=== PATIENT | female | born 1965 | race Caucasian/White ===

== ENCOUNTER → 2017-01-08 | Outpatient (CLI) | payer BC, OTHER ==
--- NOTE | 2017-01-08 15:12 | REPMRS ---
Patient History The patient states she had a clinical breast exam in 01/11 Family history of breast cancer in maternal aunt at age 90. Reductions of both breasts, 2011. Digital Woman Screen Mammo: January 08, 2017 - Exam #: [id number] Bilateral CC and MLO view(s) were taken. Technologist: Danni Murrell, Technologist Prior study comparison: November 04, 2015, digital woman screen mammo performed at [facility]. November 02, 2014, digital woman screen mammo performed at [facility]. FINDINGS: The breast tissue is heterogeneously dense. This may lower the sensitivity of mammography. There is a moderate amount of heterogeneously dense fibroglandular tissue which is fairly symmetric. There is no interval development of dominant mass, architectural distortion, or clustered microcalcification typical of malignancy. There has been no change in the appearance of the mammogram from the prior studies. ASSESSMENT: BI-RADS/ACR category 1 mammogram. Negative. Recommendation Routine screening mammogram of both breasts in 1 year (for women over age 40). This mammogram was interpreted with the aid of an FDA-approved computer-aided dectection system. Electronically Signed By: Handy Parada MD 01/08/17 [id number]
== END ==
LOC: M WHC 14:17
PROVIDERS: ATTEND Nurse Practitioner Women's Health
DX: R92.2 Inconclusive mammogram (principal)

== ENCOUNTER → 2017-01-08 | Outpatient (REF) | payer OTHER | LOC: M SFHCWAGY 14:51 | PROVIDERS: ATTEND Nurse Practitioner Women's Health | DX: Z12.31 Encounter for screening mammogram for malignant neoplasm of breast (principal); Z12.4 Encounter for screening for malignant neoplasm of cervix ==

== ENCOUNTER → 2017-10-29 | Outpatient (REF) | payer OTHER | LOC: M LAB REF 17:14 | DX: H60.11 Cellulitis of right external ear (principal) ==

== ENCOUNTER → 2018-02-25 | Outpatient (CLI) | payer BC | LOC: M WHC 08:36 | DX: Z12.31 Encounter for screening mammogram for malignant neoplasm of breast (principal) ==

== ENCOUNTER → 2018-02-25 | Outpatient (REF) | payer OTHER | LOC: M SFHCWAGY 11:16 | DX: Z12.4 Encounter for screening for malignant neoplasm of cervix (principal) ==

== ENCOUNTER → 2018-02-25 | Outpatient (REF) | payer OTHER | LOC: M SFHCWAGY 11:16 | DX: Z12.4 Encounter for screening for malignant neoplasm of cervix (principal) ==

== ENCOUNTER → 2020-01-27 | Outpatient (CLI) | payer BC, OTHER ==
[~2020-01-27] MED LIST: FLUO20CA22 PO; MULT1TAB7 PO
== END ==
LOC: M LABSMTC 08:42
PROVIDERS: ATTEND Anesthesiology
DX: Z01.818 Encounter for other preprocedural examination (principal); Z11.59 Encounter for screening for other viral diseases

== ENCOUNTER 2020-01-30 11:10 | Day surgery (SDC) | payer BC, OTHER ==
[~2020-01-30] VITALS: Ht 154.9 cm; Wt 67.6 kg
[~2020-01-30 11:10] MED LIST changes: +LIDOCAINE 2% 100MG/5ML SDV (FOR ANES.) As Ordered ONE; +NS 1,000 ML IV ONE; +propofoL 200 MG/20 ML VIAL As Ordered ONE
[2020-01-30] MEDS ORDERED: PHENYLephrine HCL 500 MCG/5 ML (100MCG/ML) SYRINGE (J2370) As Ordered ONE (11:26)
[2020-01-30] MEDS ORDERED: ePHEDrine SULFATE 25 MG/5 ML(5MG/ML) SYRINGE As Ordered ONE (11:32)
--- NOTE | 2020-01-30 12:51 | ROOR ---
Patient Name: Becky Alanis Procedure Date: 01/30/2020 12:06 PM Date of : 1965 Age: 54 Room: [facility] Gender: Female Note Status: Finalized Procedure: Colonoscopy Indications: Colon cancer screening in patient at increased risk: Family history of 1st-degree relative with colon polyps, Last colonoscopy 5 years ago Providers: Alber Lee MD Referring MD: Stefany Rizzo MD Requesting Provider: Medicines: Monitored Anesthesia Care Complications: No immediate complications. Procedure: Pre-Anesthesia Assessment: - Prior to the procedure, a History and Physical was performed, and patient medications and allergies were reviewed. The patient is competent. The risks and benefits of the procedure and the sedation options and risks were discussed with the patient. All questions were answered and informed consent was obtained. Patient identification and proposed procedure were verified by the physician, the nurse and the entry clerk in the procedure room. Mental Status Examination: alert and oriented. Airway Examination: normal oropharyngeal airway and neck mobility. Prophylactic Antibiotics: The patient does not require prophylactic antibiotics. Prior Anticoagulants: The patient has taken no previous anticoagulant or antiplatelet agents. ASA Grade Assessment: II - A patient with mild systemic disease. After reviewing the risks and benefits, the patient was deemed in satisfactory condition to undergo the procedure. The anesthesia plan was to use monitored anesthesia care (MAC). Immediately prior to administration of medications, the patient was re-assessed for adequacy to receive sedatives. The heart rate, respiratory rate, oxygen saturations, blood pressure, adequacy of pulmonary ventilation, and response to care were monitored throughout the procedure. The physical status of the patient was re-assessed after the procedure. The Colonoscope was introduced through the anus and advanced to the cecum, identified by appendiceal orifice and ileocecal valve. The colonoscopy was performed without difficulty. The patient tolerated the procedure well. The quality of the bowel preparation was excellent. Findings: The perianal and digital rectal examinations were normal. Multiple medium-mouthed diverticula were found in the sigmoid colon. The exam was otherwise without abnormality. Impression: - Diverticulosis in the sigmoid colon. - The examination was otherwise normal. - No specimens collected. Recommendation: - Discharge patient to home. - Resume previous diet. - Continue present medications. - Repeat colonoscopy in 5 years for surveillance. Alber Lee MD Alber Lee MD 01/30/2020 12:50:38 PM Electronically signed by Alber Lee MD Number of Addenda: 0 Note Initiated On: 01/30/2020 12:06 PM Estimated Blood Loss: Estimated blood loss: none.
[2020-01-30 13:10] VITALS: BP 119/62
== END 2020-01-30 13:24 | disposition home or self-care (01) ==
LOC: M OPP 11:10
PROVIDERS: ATTEND Surgery
DX: Z12.11 Encounter for screening for malignant neoplasm of colon (principal); Z83.71 Family history of colonic polyps; K57.30 Diverticulosis of large intestine without perforation or abscess without bleeding; Z79.899 Other long term (current) drug therapy

== ENCOUNTER 2020-06-15 16:20 | Emergency (ER) | payer BC, OTHER ==
[~2020-06-15] VITALS: Ht 154.9 cm; Wt 77.9 kg
[~2020-06-15 16:20] MED LIST changes: -LIDOCAINE 2% 100MG/5ML SDV (FOR ANES.) As Ordered ONE; -NS 1,000 ML IV ONE; -propofoL 200 MG/20 ML VIAL As Ordered ONE
[2020-06-15] MEDS ORDERED: MORPHINE 10 MG/ML 1ML VIAL (J2270) IM ONE (17:00)
--- NOTE | 2020-06-15 17:27 | REPVR ---
PROCEDURE INFORMATION: Exam: XR Left Forearm Exam date and time: 06/15/2020 5:14 PM Age: 55 years old Clinical indication: Pain and injury or trauma; Injury history: Crush injury; Initial encounter; Crushing; Arm, lower; Left; Hand; Additional info: Crush injury left hand/forearm TECHNIQUE: Imaging protocol: XR Left forearm. Views: 2 views. COMPARISON: No relevant prior studies available. FINDINGS: Bones/joints: There appear to be fractures at the base of the 4th and 5th metacarpal bones. Cortical irregularity seen at the base of the 3rd metacarpal bone may indicate fractures well. Correlation with hand x-ray suggested. Otherwise unremarkable. Soft tissues: See "Bones/joints" finding. IMPRESSION: There appear to be fractures at the base of the 4th and 5th metacarpal bones. Cortical irregularity seen at the base of the 3rd metacarpal bone may indicate fractures well. Correlation with hand x-ray suggested. Electronically signed by: Jose Terry On 06/15/2020 17:27:39 PM
--- NOTE | 2020-06-15 17:29 | REPVR ---
PROCEDURE INFORMATION: Exam: XR Left Hand Exam date and time: 06/15/2020 5:14 PM Age: 55 years old Clinical indication: Pain and injury or trauma; Injury history: Crush injury; Initial encounter; Crushing; Arm, lower and hand; Left; Lower or forearm; Additional info: Crush injury left hand/forearm TECHNIQUE: Imaging protocol: XR Left hand. Views: 3 or more views. COMPARISON: No relevant prior studies available. FINDINGS: Bones/joints: Fractures at the base of the 4th and 5th metacarpal bone. Oblique fractures through the proximal portion of the proximal phalanx of the 5th finger. Degenerative changes in the interphalangeal joints. Soft tissues: Soft tissue swelling in the lateral and 5th finger. IMPRESSION: Fractures at the base of the 4th and 5th metacarpal bone. Oblique fractures through the proximal portion of the proximal phalanx of the 5th finger. Electronically signed by: Jose Terry On 06/15/2020 17:29:02 PM
[2020-06-15] MEDS ORDERED: PERC5TAB12 PO (18:25)
[2020-06-15] MEDS ORDERED: ONDA4TAB6 PO (18:25)
[2020-06-15 18:26] VITALS: BP 119/70
[2020-06-15] MEDS ORDERED: ONDANSETRON 4 MG ORAL DISINTEGRATING TAB PO ONE (18:30)
== END 2020-06-15 18:34 | disposition home or self-care (01) ==
LOC: M ED 16:20
DX: S62.345A Nondisplaced fracture of base of fourth metacarpal bone, left hand, initial encounter for closed fracture (principal); S62.347A Nondisplaced fracture of base of fifth metacarpal bone, left hand, initial encounter for closed fracture; W23.0XXA Caught, crushed, jammed, or pinched between moving objects, initial encounter; Y92.019 Unspecified place in single-family (private) house as the place of occurrence of the external cause; F33.9 Major depressive disorder, recurrent, unspecified; Z79.899 Other long term (current) drug therapy
CPT/HCPCS: 73090; 73130; 96372; 99283; J2270; Q0162

== ENCOUNTER → 2020-12-06 | Outpatient (CLI) | payer BC, OTHER ==
[~2020-12-06] MED LIST changes: +BONI1TAB PO; +ONDA4TAB6 PO; +PERC5TAB12 PO
== END ==
LOC: M LABSMTC 10:08
PROVIDERS: ATTEND Anesthesiology
DX: Z01.812 Encounter for preprocedural laboratory examination (principal); Z20.822 Contact with and (suspected) exposure to COVID-19

== ENCOUNTER → 2020-12-06 | Outpatient (CLI) | payer BC, OTHER ==
--- NOTE | 2020-12-06 11:48 | ECGEPIP ---
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
== END ==
LOC: M EKG 10:33
PROVIDERS: ATTEND Anesthesiology
DX: Z01.818 Encounter for other preprocedural examination (principal)

== ENCOUNTER 2020-12-11 07:23 | Day surgery (SDC) | payer BC, OTHER ==
[~2020-12-11] VITALS: Ht 154.9 cm; Wt 68.0 kg
[2020-12-11] VITALS (7 sets, daily range): BP systolic 105–139; BP diastolic 58–69
[~2020-12-11 07:23] MED LIST changes: +LR 1,000 ML IV ONE; +ceFAZolin SOD 2 GM in IV 1 EA IV ONE
[2020-12-11 07:58] LABS: HEMATOCRIT 45.3 % (36.0-47.0); HEMOGLOBIN 14.5 g/dl (12.0-15.5); MEAN CORPUSCULAR HEMOGLOBIN 29.2 pg (27.0-33.0); MEAN CORPUSCULAR VOLUME 91.3 fl (80.0-96.0); PLATELET COUNT, AUTOMATED 265 10^3/uL (150-450); RED BLOOD COUNT 4.96 10^6/uL (4.00-5.40); WHITE BLOOD COUNT 6.4 10^3/uL (4.0-10.0)
[2020-12-11] MEDS ORDERED: HYDROmorphone HCL 2 MG/ML 1ML VIAL (J1170) As Ordered ONE (08:13)
[2020-12-11] MEDS ORDERED: MIDAZOLAM INJ 2MG/2ML VIAL (J2250 PER 1MG) As Ordered ONE (08:13)
[2020-12-11] MEDS ORDERED: fentaNYL 100 MCG/2 ML INJECTION (J3010) As Ordered ONE (08:13)
[2020-12-11] MEDS ORDERED: LIDOCAINE 2% 100MG/5ML SDV (FOR ANES.) As Ordered ONE (08:15)
[2020-12-11] MEDS ORDERED: KETOROLAC 60MG 2ML VIAL As Ordered ONE (08:15)
[2020-12-11] MEDS ORDERED: ONDANSETRON 4MG/2ML VIAL As Ordered ONE (08:15)
[2020-12-11] MEDS ORDERED: propofoL 200 MG/20 ML VIAL As Ordered ONE (08:15)
[2020-12-11] MEDS ORDERED: dexameTHASONE 4 MG/ML 1ML VIAL (J1100 PER 1MG) As Ordered ONE (08:15)
[2020-12-11] MEDS ORDERED: ROCURONIUM BROMIDE 50 MG/5 ML VIAL As Ordered ONE ×2 (08:15→10:20)
[2020-12-11 08:19] LABS: BLOOD UREA NITROGEN 12 MG/DL (7-18); CALCIUM LEVEL 8.5 MG/DL (8.5-10.1); CARBON DIOXIDE LEVEL 29 MEQ/L (21-32); CHLORIDE LEVEL 105 MEQ/L (98-107); GLOMERULAR FILTRATION RATE > 60.0 (>51); GLUCOSE, FASTING 100 MG/DL (70-100); SODIUM LEVEL 139 MEQ/L (136-145)
[2020-12-11] MEDS ORDERED: SCOPOLAMINE 1MG TRANSDERMAL PATCH TOP ONE (09:10)
[2020-12-11] MEDS ORDERED: FLUORESCEIN 10% (100MG/ML) 5 ML VIAL As Ordered ONE (09:22)
[2020-12-11] MEDS ORDERED: BUPIVACAINE/EPIN 0.25% 30 ML VIAL As Ordered ONE (09:22)
[2020-12-11] MEDS ORDERED: OXYC1TAB23 PO (09:53)
[2020-12-11] MEDS ORDERED: IBUP80TA PO (09:53)
[2020-12-11] MEDS ORDERED: PHENYLephrine 500MCG 5ML (100MCG/ML) SYRINGE As Ordered ONE (10:03)
[2020-12-11] MEDS ORDERED: ePHEDrine SULFATE 25 MG/5 ML(5MG/ML) SYRINGE As Ordered ONE (10:03)
[2020-12-11] MEDS ORDERED: SUGAMMADEX SODIUM 500 MG/5 ML VIAL (BRIDION) As Ordered ONE (10:07)
[2020-12-11] MEDS ORDERED: ACETAMINOPHEN 1000MG 100ML IV BTL (OFIRMEV) (J0131 PER 10MG) As Ordered ONE (10:07)
[2020-12-11] MEDS ORDERED: GLYCOPYRROLATE INJ 0.2 MG/ML 2 ML VIAL As Ordered ONE (10:13)
[2020-12-11] MEDS ORDERED: ONDANSETRON 4MG/2ML VIAL IV PRN (11:45)
[2020-12-11] MEDS ORDERED: oxyCODONE 5MG TAB PO PRN (11:45)
[2020-12-11] MEDS ORDERED: MEPERIDINE INJ 25 MG/ML VIAL (J2175) IV PRN (11:45)
[2020-12-11] MEDS ORDERED: LR 1,000 ML IV SCH ×2 (11:45→11:50)
[2020-12-11] MEDS ORDERED: fentaNYL 100 MCG/2 ML INJECTION (J3010) IV PRN (11:45)
[2020-12-11] MEDS ORDERED: PERCOCET 5MG/325MG TAB PO PRN (11:47)
[2020-12-11] MEDS: SIMETHICONE 80MG CHEW TAB PO SCH ×2 (12:00→17:01)
[2020-12-11] MEDS ORDERED: IBUPROFEN 800 MG TAB PO SCH (14:00)
[2020-12-11] MEDS: IBUPROFEN 800 MG TAB PO SCH (17:01)
[2020-12-12] VITALS: BP_SYST 95; BP_DIAS 41; BP_DIAS 51
[2020-12-12] MEDS: IBUPROFEN 800 MG TAB PO SCH ×2 (00:05→06:09)
[2020-12-12] MEDS: SIMETHICONE 80MG CHEW TAB PO SCH ×2 (00:05→06:09)
[2020-12-12 06:00] VITALS: BP 108/57
[2020-12-12 08:45] VITALS: BP 109/55
--- NOTE | 2020-12-12 13:13 | RO ---
OPERATIVE NOTE DATE OF OPERATION: 12/12/2020 INDICATIONS FOR PROCEDURE: Becky is a 50-year-old female with an extensive history of abnormal uterine bleeding post ablation and also fibroid uterus. After counseling, a decision was made for a total robotic-assisted hysterectomy, bilateral salpingo-oophorectomy, and cystoscopy. PREOPERATIVE DIAGNOSES: 1. Abnormal uterine bleeding post ablation. 2. Fibroid uterus. POSTOPERATIVE DIAGNOSES: 1. Abnormal uterine bleeding post ablation. 2. Fibroid uterus. PROCEDURES: 1. Robotic-assisted total hysterectomy. 2. Bilateral salpingo-oophorectomy. 3. Cystoscopy. SURGEON: Carlos Krishnamurthy D.O. COLLECTION ANALYST: MACARENA Cruz. ANESTHESIA: General. COMPLICATIONS: None. ESTIMATED BLOOD LOSS: 30 mL. FINDINGS: Normal appearing uterus, tubes, and ovaries. Cystoscopy with bilateral ureteral jets noted. No evidence of any bladder injury noted. DESCRIPTION OF PROCEDURE: After obtaining informed consent, the patient was taken to the operating room where general anesthetic was found to be adequate. She was then prepped and draped in the usual sterile fashion in the dorsolithotomy position. At this point, a Valdovinos catheter was placed in the bladder for drainage. We then placed a HUMI 3 uterine manipulator. Attention was then turned to the abdomen where the abdomen was insufflated through a Veress needle to approximately 3.5 liters. We then placed an 8-mm supraumbilical port. The robotic trocar was inserted under direct visualization. Then two left lateral ports were placed for robotic arm one and two, and the on the right an 8-mm lateral port placed for robotic arm two. At this point, the robot was brought to the patient at 45 degrees on the right side. The patient was placed into Trendelenburg. The camera port was docked. Proper targeting was performed and the remaining arm was then docked. I then placed Vessel Sealer in arm one and a bipolar grasper in arm two, unscrubbed, and went to the surgeon's console to begin the surgery. The infundibulopelvic ligament was identified. This was cauterized and cut using the Vessel Sealer. We then took serial bite to include the uterine artery all the way down to the round ligament. The anterior lip of the broad ligament was then dissected to create a bladder flap. The opposite side was done in a similar fashion. The bladder was completely pushed out of the operative field. At this point, the Vessel Sealer was removed and Endo Shear was performed. Anterior and posterior colpotomy was then performed. The uterus, cervix, bilateral tubes, and ovaries were removed through the vagina. The vaginal cuff was then closed using 2-0 V-Loc suture in a running fashion. The peritoneum over the vaginal cuff was also closed. The pelvis was copiously irrigated with normal saline and suctioned out. 1 mL of Fluorescein was given by the anesthesiologist for the cystoscopy. I then rescrubbed and went to the patient's side. Retrograde filled the bladder to approximately 230 mL of normal saline. Cystoscopy was performed. Bilateral urethral jets noted. No evidence of any bladder injury. At this point, the cystoscope was removed and the Valdovinos catheter placed back in the bladder for drainage. I then turned my attention to the abdomen where the robotic trocar sites were then closed in a subcuticular fashion using 3-0 Vicryl. 0.25% Marcaine was placed for postoperative pain. Dermabond placed. The patient tolerated the procedure well. She was then transferred to the recovery room in stable condition.
== END 2020-12-12 10:18 | disposition home or self-care (01) ==
LOC: M SDC 07:23 → M PED 13:50 → M SDC 12-12 10:18
PROVIDERS: ATTEND Obstetrics & Gynecology
DX: N93.9 Abnormal uterine and vaginal bleeding, unspecified (principal); D25.9 Leiomyoma of uterus, unspecified; F41.9 Anxiety disorder, unspecified; Z79.899 Other long term (current) drug therapy; N72 Inflammatory disease of cervix uteri
CPT/HCPCS: 36415; 58571; 80048; 85027; 86850; 86900; 86901; 88307; 96360; 96361; J0131; J0690; J1100; J1170; J1885; J2250; J2370; J2405; J3010; S2900

== ENCOUNTER → 2021-12-19 | Outpatient (CLI) | payer BC, OTHER ==
[~2021-12-19] MED LIST changes: +IBUP80TA PO; -LR 1,000 ML IV ONE; +OXYC1TAB23 PO; -ceFAZolin SOD 2 GM in IV 1 EA IV ONE
[2021-12-19 10:52] LABS: BASO % 0.5 % (0.0-1.0); EOS # 0.1 10^3/uL (0.0-0.5); EOS % 1.1 % (0.0-3.0); HEMATOCRIT 40.7 % (36.0-47.0); HEMOGLOBIN 12.9 g/dl (12.0-15.5); LYMPH # 1.8 10^3/uL (1.5-5.0); LYMPH % 28.6 % (24.0-44.0); MEAN CORPUSCULAR HEMOGLOBIN 28.4 pg (27.0-33.0); MEAN CORPUSCULAR HGB CONC 31.7 g/dl (32.0-36.5); MEAN CORPUSCULAR VOLUME 89.5 fl (80.0-96.0); MONO # 0.5 10^3/uL (0.0-0.8); NEUTROPHILS # 3.8 10^3/uL (1.5-8.5); NEUTROPHILS % 61.5 % (36.0-66.0); PLATELET COUNT, AUTOMATED 241 10^3/uL (150-450); RED BLOOD COUNT 4.55 10^6/uL (4.00-5.40); WHITE BLOOD COUNT 6.1 10^3/uL (4.0-10.0)
[2021-12-19 11:25] LABS: ALBUMIN 3.7 GM/DL (3.2-5.2); ALT/SGPT 29 U/L (12-78); BILIRUBIN,TOTAL 0.4 MG/DL (0.2-1.0); BLOOD UREA NITROGEN 16 MG/DL (7-18); CALCIUM LEVEL 8.6 MG/DL (8.5-10.1); CARBON DIOXIDE LEVEL 30 MEQ/L (21-32); CHLORIDE LEVEL 107 MEQ/L (98-107); CHOLESTEROL LEVEL 161 MG/DL (<200); CHOLESTEROL RISK RATIO 3.285 (<5); CREATININE FOR GFR 0.76 MG/DL (0.55-1.30); GLOMERULAR FILTRATION RATE > 60.0 (>51); GLUCOSE, FASTING 85 MG/DL (70-100); HDL CHOLESTEROL 49 MG/DL (>40); LDL CHOLESTEROL 98 MG/DL (<100); NON-HDL-C 112 MG/DL; POTASSIUM SERUM 4.3 MEQ/L (3.5-5.1); SODIUM LEVEL 140 MEQ/L (136-145); TOTAL PROTEIN 6.6 GM/DL (6.4-8.2); TRIGLYCERIDES LEVEL 72 MG/DL (<150)
== END ==
LOC: M PLALAB 07:28
PROVIDERS: ATTEND Family Medicine
DX: Z00.00 Encounter for general adult medical examination without abnormal findings (principal); R53.83 Other fatigue

== ENCOUNTER → 2021-12-19 | Outpatient (CLI) | payer BC, OTHER | LOC: M WHC 06:56 | PROVIDERS: ATTEND Obstetrics & Gynecology | DX: Z12.31 Encounter for screening mammogram for malignant neoplasm of breast (principal) ==

== ENCOUNTER → 2023-01-14 | Outpatient (CLI) | payer BC, OTHER | LOC: M WHC 16:16 | PROVIDERS: ATTEND Nurse Practitioner Family | DX: Z53.9 Procedure and treatment not carried out, unspecified reason (principal) ==

== ENCOUNTER → 2023-02-05 | Outpatient (CLI) | payer BC, OTHER | LOC: M WHC 11:50 | PROVIDERS: ATTEND Nurse Practitioner Family | DX: Z12.31 Encounter for screening mammogram for malignant neoplasm of breast (principal) ==

== ENCOUNTER → 2023-02-18 | Outpatient (REF) | payer BC, OTHER ==
[2023-02-24 10:09] LABS: HSV-1 DNA Negative (Negative); HSV-2 DNA Negative (Negative)
== END ==
LOC: M SFHCWAGY 15:38
PROVIDERS: ATTEND Nurse Practitioner Family
DX: L29.2 Pruritus vulvae (principal)

== ENCOUNTER → 2023-08-06 | Outpatient (REF) | payer OTHER, BC ==
[2023-08-06 13:25] LABS: BASO # 0.1 10^3/uL (0.0-0.2); BASO % 0.8 % (0.0-1.0); EOS # 0.1 10^3/uL (0.0-0.5); EOS % 1.8 % (0.0-3.0); HEMATOCRIT 43.8 % (36.0-47.0); HEMOGLOBIN 13.6 g/dl (12.0-15.5); LYMPH % 31.9 % (24.0-44.0); MEAN CORPUSCULAR HEMOGLOBIN 28.6 pg (27.0-33.0); MEAN CORPUSCULAR HGB CONC 31.1 g/dl (32.0-36.5); MEAN CORPUSCULAR VOLUME 92.2 fl (80.0-96.0); MONO # 0.5 10^3/uL (0.0-0.8); MONO % 7.5 % (2.0-8.0); NEUTROPHILS # 3.5 10^3/uL (1.5-8.5); NEUTROPHILS % 57.8 % (36.0-66.0); PLATELET COUNT, AUTOMATED 251 10^3/uL (150-450); RED BLOOD COUNT 4.75 10^6/uL (4.00-5.40); WHITE BLOOD COUNT 6.1 10^3/uL (4.0-10.0)
[2023-08-06 13:47] LABS: ALBUMIN 3.8 G/DL (3.2-5.2); ALKALINE PHOSPHATASE 80 U/L (46-116); ALT/SGPT 53 U/L (7.0-40); AST/SGOT 28 U/L (<34); BILIRUBIN,TOTAL 0.6 MG/DL (0.3-1.2); BLOOD UREA NITROGEN 21 MG/DL (9-23); CALCIUM LEVEL 9.4 MG/DL (8.5-10.1); CARBON DIOXIDE LEVEL 32 MMOL/L (20-31); CHLORIDE LEVEL 103 MMOL/L (98-107); CHOLESTEROL LEVEL 252 MG/DL (<200); CHOLESTEROL RISK RATIO 3.39 (<5); CREATININE FOR GFR 0.76 MG/DL (0.55-1.30); GLOMERULAR FILTRATION RATE > 60.0 (>51); GLUCOSE, FASTING 86 MG/DL (60-100); HDL CHOLESTEROL 74.3 MG/DL (>40); LDL CHOLESTEROL 159.7 MG/DL (<100); NON-HDL-C 177.7 MG/DL; POTASSIUM SERUM 4.8 MMOL/L (3.5-5.1); SODIUM LEVEL 140 MMOL/L (136-145); TRIGLYCERIDES LEVEL 90 MG/DL (<150)
== END ==
LOC: M LABDRWAD 12:30
PROVIDERS: ATTEND Registered Nurse
DX: Z00.00 Encounter for general adult medical examination without abnormal findings (principal)

== ENCOUNTER → 2023-10-08 | Outpatient (CLI) | payer BC, OTHER | LOC: M WHC 08:51 | PROVIDERS: ATTEND Registered Nurse | DX: Z13.820 Encounter for screening for osteoporosis (principal); M85.89 Other specified disorders of bone density and structure, multiple sites ==

== ENCOUNTER → 2024-04-05 | Outpatient (REF) | payer OTHER ==
[~2024-04-05] MED LIST changes: +FLUO-365 PO; -FLUO20CA22 PO; +ONDA-282 PO; -ONDA4TAB6 PO
== END ==
LOC: M SFHCDERM 17:33
PROVIDERS: ATTEND Nurse Practitioner Family
DX: D49.2 Neoplasm of unspecified behavior of bone, soft tissue, and skin (principal)

== ENCOUNTER → 2024-07-24 | Outpatient (CLI) | payer BC | LOC: M WHC 09:59 | PROVIDERS: ATTEND Nurse Practitioner Family | DX: Z12.31 Encounter for screening mammogram for malignant neoplasm of breast (principal); R92.333 Mammographic heterogeneous density, bilateral breasts ==

== ENCOUNTER → 2024-09-29 | Outpatient (REF) | payer BC, OTHER ==
[2024-09-29 14:44] LABS: BASO # 0.1 10^3/uL (0.0-0.2); BASO % 1.2 % (0.0-1.0); EOS # 0.1 10^3/uL (0.0-0.5); EOS % 1.7 % (0.0-3.0); HEMOGLOBIN 13.3 g/dl (12.0-15.5); LYMPH # 1.7 10^3/uL (1.5-5.0); LYMPH % 33.3 % (24.0-44.0); MEAN CORPUSCULAR HGB CONC 31.7 g/dl (32.0-36.5); MEAN CORPUSCULAR VOLUME 91.5 fl (80.0-96.0); MONO # 0.4 10^3/uL (0.0-0.8); NEUTROPHILS # 2.9 10^3/uL (1.5-8.5); NEUTROPHILS % 56.6 % (36.0-66.0); PLATELET COUNT, AUTOMATED 245 10^3/uL (150-450); RED BLOOD COUNT 4.59 10^6/uL (4.00-5.40); WHITE BLOOD COUNT 5.2 10^3/uL (4.0-10.0)
[2024-09-29 15:08] LABS: ALKALINE PHOSPHATASE 79 U/L (35-104); ALT/SGPT 39 U/L (7.0-40); AST/SGOT 21 U/L (<34); BILIRUBIN,TOTAL 0.7 MG/DL (0.3-1.2); BLOOD UREA NITROGEN 17 MG/DL (9-23); CALCIUM LEVEL 9.7 MG/DL (8.3-10.6); CARBON DIOXIDE LEVEL 31 MMOL/L (20-31); CHLORIDE LEVEL 102 MMOL/L (98-107); CHOLESTEROL LEVEL 276 MG/DL (<200); CHOLESTEROL RISK RATIO 4.05 (<5); CREATININE FOR GFR 0.88 MG/DL (0.55-1.30); GLOMERULAR FILTRATION RATE > 60.0 (>45); GLUCOSE, FASTING 99 MG/DL (74-106); HDL CHOLESTEROL 68.1 MG/DL (>40); LDL CHOLESTEROL 180.7 MG/DL (<100); NON-HDL-C 207.9 MG/DL; POTASSIUM SERUM 4.4 MMOL/L (3.5-5.1); SODIUM LEVEL 141 MMOL/L (136-145); TOTAL PROTEIN 7.4 G/DL (5.7-8.2); TRIGLYCERIDES LEVEL 136 MG/DL (<150)
== END ==
LOC: M LABDRWAD 13:15
PROVIDERS: ATTEND Registered Nurse
DX: E78.2 Mixed hyperlipidemia (principal)

== ENCOUNTER → 2024-11-20 | Outpatient (REF) | payer OTHER, BC ==
[2024-11-20 14:00] LABS: ALBUMIN 3.8 G/DL (3.2-5.2); ALKALINE PHOSPHATASE 83 U/L (35-104); ALT/SGPT 41 U/L (7.0-40); AST/SGOT 23 U/L (<34); BILIRUBIN,TOTAL 0.7 MG/DL (0.3-1.2); BLOOD UREA NITROGEN 14 MG/DL (9-23); CALCIUM LEVEL 9.3 MG/DL (8.3-10.6); CARBON DIOXIDE LEVEL 29 MMOL/L (20-31); CHLORIDE LEVEL 106 MMOL/L (98-107); CHOLESTEROL LEVEL 159 MG/DL (<200); CHOLESTEROL RISK RATIO 2.39 (<5); CREATININE FOR GFR 0.78 MG/DL (0.55-1.30); GLOMERULAR FILTRATION RATE > 60.0 (>45); GLUCOSE, FASTING 94 MG/DL (74-106); HDL CHOLESTEROL 66.3 MG/DL (>40); LDL CHOLESTEROL 72.5 MG/DL (<100); NON-HDL-C 92.7 MG/DL; POTASSIUM SERUM 4.6 MMOL/L (3.5-5.1); SODIUM LEVEL 144 MMOL/L (136-145); TRIGLYCERIDES LEVEL 101 MG/DL (<150)
== END ==
LOC: M LABDRWAD 12:52
PROVIDERS: ATTEND Registered Nurse
DX: E78.2 Mixed hyperlipidemia (principal)

== ENCOUNTER → 2025-07-25 | Outpatient (CLI) | payer BC ==
[~2025-07-25] MED LIST changes: +OYST1TAB PO; +ROSU10TA90 PO
== END ==
LOC: M PLALAB 11:39
PROVIDERS: ATTEND Nurse Practitioner Family
DX: R10.84 Generalized abdominal pain (principal); R14.0 Abdominal distension (gaseous)

== ENCOUNTER → 2025-07-25 | Outpatient (CLI) | payer BC | LOC: M WHC 10:06 | PROVIDERS: ATTEND Nurse Practitioner Family | DX: Z12.31 Encounter for screening mammogram for malignant neoplasm of breast (principal); R92.333 Mammographic heterogeneous density, bilateral breasts ==

== ENCOUNTER 2025-09-06 08:17 | Day surgery (SDC) | payer BC ==
[~2025-09-06] VITALS: Ht 154.9 cm; Wt 66.0 kg
[2025-09-06] MEDS ORDERED: GLYCOPYRROLATE INJ 0.2 MG/ML 2 ML VIAL As Ordered ONE (08:47)
[2025-09-06 08:57] VITALS: TEMP 97.2
[2025-09-06 09:20] VITALS: BP 104/62; O2SAT 98
== END 2025-09-06 09:35 | disposition home or self-care (01) ==
LOC: M OPP 08:17
PROVIDERS: ATTEND Surgery
DX: Z12.11 Encounter for screening for malignant neoplasm of colon (principal); K57.30 Diverticulosis of large intestine without perforation or abscess without bleeding; Z79.899 Other long term (current) drug therapy
CPT/HCPCS: 45378; J1596